=== PATIENT | female | born 1965 | race Hispanic/Latino ===

== ENCOUNTER 2017-06-06 15:00 | Inpatient (IN) | payer MEDICARE ==
[~2017-06-06] VITALS: Ht 160 cm; Wt 112.9 kg
[2017-06-06 12:39] LABS: BASOPHILS % (AUTO) 0.4 % (0.0-5.0); EOSINOPHILS % (AUTO) 2.4 % (0.0-8.0); HEMATOCRIT 38.4 % (36-48); LYMPHOCYTES % (AUTO) 22.2 % (21.0-51.0); MEAN CORPUSCULAR HEMOGLOBIN 32.1 pg (27.0-33.0); MEAN CORPUSCULAR HGB CONC 34.8 g/dL (32.0-36.0); MEAN CORPUSCULAR VOLUME 92.3 fL (79-99); MONOCYTES % (AUTO) 6.8 % (3.0-13.0); NEUTROPHILS % (AUTO) 68.2 % (40.0-77.0); PLATELET COUNT (AUTO) 267 K/uL (130-400); RED BLOOD CELL COUNT(AUTO) 4.16 MIL/uL (4.00-5.50); RED CELL DISTRIBUTION WIDTH 13.6 % (11.0-15.5); WHITE BLOOD COUNT (AUTO) 7.2 K/uL (4.8-10.8)
[2017-06-06 12:40] VITALS: BP 138/81
[2017-06-06 12:43] LABS: APPEARANCE,URINE Clear (CLEAR); BILIRUBIN,URINE Negative (NEGATIVE); COLOR,URINE Yellow (YELLOW); GLUCOSE, URINE (UA) Negative (NEGATIVE); KETONES,URINE Negative (NEGATIVE); LEUKOCYTE ESTERASE ,URINE Negative (NEGATIVE); NITRATE,URINE Negative (NEGATIVE); OCCULT BLOOD,URINE Negative (NEGATIVE); PH,URINE 6.5 (5.0-8.0); PROTEIN,URINE Negative (NEGATIVE)
[2017-06-06 12:50] LABS: CREATININE 0.8 mg/dL (0.5-1.5); POTASSIUM 4.2 mmol/L (3.5-5.1)
[2017-06-06 12:53] LABS: INR 0.92 (0.85-1.15); PARTIAL THROMBOPLASTIN TIME 27.3 SEC (26.3-35.5); PROTHROMBIN TIME 9.7 SEC (9.6-11.6)
[~2017-06-06 15:00] MED LIST: ALBU8.5H8 IH; ALPR2TAB2 PO; GABA-326 PO; HYDR-4060 PO; LORA10TA7 PO; METF500T6 PO; NAPROXEN PO; OXCA600T10 PO; OXYB5TAB PO; RANI150T7 PO; TOPI200T PO
[2017-06-09] VITALS (34 sets, daily range): BP systolic 81–145; BP diastolic 41–79
[2017-06-09] MEDS ORDERED: CEFAZOLIN 3GM /D5W 100ML 100 ML IV ONE (05:00)
[2017-06-09] MEDS ORDERED: CEFAZOLIN SODIUM 1 GM VIAL ONE ×4 (11:41→17:18)
[2017-06-09] MEDS ORDERED: SODIUM CHLORIDE 0.9% 1000ML 1,000 ML IV ONE (11:41)
[2017-06-09] MEDS ORDERED: MIDAZOLAM HCL 1 MG/ML 2ML VIAL ONE (12:33)
[2017-06-09] MEDS ORDERED: LIDOCAINE PF 2% 5ML ABBOJECT ONE (12:33)
[2017-06-09] MEDS ORDERED: ONDANSETRON HCL 4 MG/2 ML VIAL ONE ×2 (12:33→15:52)
[2017-06-09] MEDS ORDERED: GLYCOPYRROLATE 0.2 MG/ML 5 ML VIAL ONE (12:33)
[2017-06-09] MEDS ORDERED: PROPOFOL 10 MG/ML 20ML VIAL IV ONE (12:33)
[2017-06-09] MEDS ORDERED: DEXAMETHASONE SOD PHOSPHATE 10MG/ML 1ML VIAL ONE ×2 (12:33→15:52)
[2017-06-09] MEDS ORDERED: FENTANYL CITRATE PF 50 MCG/1 ML 2ML VIAL ONE ×5 (12:34→16:46)
[2017-06-09] MEDS ORDERED: MORPHINE SULFATE 2 MG/ML 1ML SYG ONE (12:34)
[2017-06-09] MEDS ORDERED: CELECOXIB 200 MG CAP ONE (12:44)
[2017-06-09] MEDS ORDERED: METOCLOPRAMIDE 10 MG/2 ML VIAL ONE ×2 (12:44→15:51)
[2017-06-09] MEDS ORDERED: ACETAMINOPHEN EXTRA STRENGTH 500 MG TABLET ONE (12:44)
[2017-06-09] MEDS ORDERED: KETOROLAC TROMETHAMINE 15MG/ML ONE (12:44)
[2017-06-09] MEDS ORDERED: OXYCODONE HCL 10 MG TAB.SR.12H PO ONE (12:45)
[2017-06-09] MEDS ORDERED: CALDOLOR 800MG+NS 250ML 250 ML IV ONE (12:58)
[2017-06-09] MEDS ORDERED: ROPIVACAINE 0.5% 5MG/ML 30ML IJ ONE ×2 (12:58→15:52)
[2017-06-09] MEDS: MORPHINE SULFATE 2 MG/ML 1ML SYG IVP SCH (13:00)
[2017-06-09] MEDS ORDERED: TRANEXAMIC ACID 1000MG/10ML IV ONE (13:23)
[2017-06-09] MEDS ORDERED: ROCURONIUM BROMIDE 10MG/1ML 5ML VL ONE ×2 (15:51→16:41)
[2017-06-09] MEDS ORDERED: SUCCINYLCHOLINE 200MG/10ML SYR ONE (15:51)
[2017-06-09] MEDS ORDERED: ESMOLOL HCL 10 MG/ML 10 ML VIAL ONE (15:53)
[2017-06-09] MEDS ORDERED: FERROUS FUMARATE 324 MG TABLET PO PRN (17:45)
[2017-06-09] MEDS ORDERED: DiphenhydrAMINE HCL 50 MG/ML VIAL IVP PRN (17:45)
[2017-06-09] MEDS ORDERED: KETOROLAC TROMETHAMINE 15MG/ML IV PRN (17:45)
[2017-06-09] MEDS ORDERED: PROMETHAZINE HCL 25 MG/ML 1ML AMPULE IM PRN (17:45)
[2017-06-09] MEDS ORDERED: DIPHENHYDRAMINE HCL 25 MG CAPSULE PO PRN (17:45)
[2017-06-09] MEDS ORDERED: EPHEDRINE SULFATE 50 MG/ML AMPULE ONE (17:52)
[2017-06-09] MEDS ORDERED: MEPERIDINE-PF 50 MG/ML SYG ONE (18:23)
[2017-06-09] MEDS ORDERED: NAPROXEN PO PRN (20:45)
[2017-06-09] MEDS ORDERED: ALBUTEROL SULFATE 0.083% 2.5 MG/3 ML INH IH PRN (20:45)
[2017-06-09] MEDS ORDERED: OXCARBAZEPINE 300 MG TAB PO SCH (21:00)
[2017-06-09] MEDS: INSULIN HUMULIN R 100 UNIT/ML 3ML SQ SCH (21:00)
[2017-06-09] MEDS: TOPIRAMATE 25 MG TABLET PO SCH (21:00)
[2017-06-09] MEDS: ALPRAZOLAM 1 MG TAB PO SCH (21:00)
[2017-06-09] MEDS: GABAPENTIN 300 MG CAPSULE PO SCH (21:00)
[2017-06-09] MEDS: CEFAZOLIN 3GM /D5W 100ML 100 ML IV SCH (22:37)
[2017-06-09] MEDS: SODIUM CHLORIDE 0.9% 1000ML 1,000 ML IV SCH (22:42)
[2017-06-09] MEDS ORDERED: OXYCODONE HCL 5 MG TAB PO PRN (23:15)
[2017-06-10] VITALS (8 sets, daily range): BP systolic 101–139; BP diastolic 53–69
[2017-06-10] MEDS: OXYCODONE HCL 5 MG TAB PO PRN ×2 (00:23→21:01)
[2017-06-10] MEDS: ACETAMINOPHEN 325 MG TAB PO SCH ×5 (00:25→23:58)
[2017-06-10] MEDS: SODIUM CHLORIDE 0.9% 1000ML 1,000 ML IV SCH ×2 (03:41→13:29)
[2017-06-10 04:51] LABS: HEMATOCRIT 25.6 % (36-48); MEAN CORPUSCULAR HEMOGLOBIN 33.2 pg (27.0-33.0); MEAN CORPUSCULAR HGB CONC 36.4 g/dL (32.0-36.0); MEAN CORPUSCULAR VOLUME 91.2 fL (79-99); PLATELET COUNT (AUTO) 227 K/uL (130-400); RED BLOOD CELL COUNT(AUTO) 2.81 MIL/uL (4.00-5.50); RED CELL DISTRIBUTION WIDTH 13.8 % (11.0-15.5)
[2017-06-10 05:00] LABS: CREATININE 0.9 mg/dL (0.5-1.5); POTASSIUM 3.9 mmol/L (3.5-5.1)
[2017-06-10] MEDS: CEFAZOLIN 3GM /D5W 100ML 100 ML IV SCH (06:38)
[2017-06-10] MEDS: INSULIN HUMULIN R 100 UNIT/ML 3ML SQ SCH ×4 (06:49→20:20)
[2017-06-10] MEDS: MORPHINE SULFATE 2 MG/ML 1ML SYG IVP SCH (07:05)
[2017-06-10] MEDS: GABAPENTIN 300 MG CAPSULE PO SCH ×3 (09:00→19:56)
[2017-06-10] MEDS: OXYBUTYNIN 5 MG TAB.SR.24H PO SCH (09:00)
[2017-06-10] MEDS: GABAPENTIN 100 MG CAPSULE PO SCH ×3 (09:00→19:56)
[2017-06-10] MEDS: METFORMIN HCL 500 MG TABLET PO SCH ×2 (09:31→16:36)
[2017-06-10] MEDS: APIXABAN 2.5 MG TABLET PO SCH ×2 (09:32→19:55)
[2017-06-10] MEDS: OXCARBAZEPINE 300 MG TAB PO SCH ×2 (09:32→19:57)
[2017-06-10] MEDS: ALPRAZOLAM 1 MG TAB PO SCH ×3 (09:32→19:56)
[2017-06-10] MEDS: POLYETHYLENE GLYCOL 3350 17 GM POWD.PACK PO SCH (09:32)
[2017-06-10] MEDS: LORATADINE 10 MG TABLET PO SCH (09:32)
[2017-06-10] MEDS: CALCIUM CARBONATE 500 MG TABLET PO PRN ×2 (12:03→19:55)
[2017-06-10] MEDS: PSYLLIUM SEED 1 EACH PACKET PO SCH (12:04)
[2017-06-10] MEDS: TOPIRAMATE 25 MG TABLET PO SCH (19:57)
[2017-06-10] MEDS ORDERED: FAMOTIDINE 20MG TAB 20 MG TAB PO SCH (21:00)
[2017-06-11] VITALS: BP 116/52
[2017-06-11] MEDS: OXYCODONE HCL 5 MG TAB PO PRN ×3 (01:08→10:09)
[2017-06-11 04:00] VITALS: BP 127/59
[2017-06-11 05:04] LABS: HEMATOCRIT 23.3 % (36-48); MEAN CORPUSCULAR HEMOGLOBIN 31.8 pg (27.0-33.0); MEAN CORPUSCULAR HGB CONC 35.1 g/dL (32.0-36.0); MEAN CORPUSCULAR VOLUME 90.6 fL (79-99); PLATELET COUNT (AUTO) 201 K/uL (130-400); RED BLOOD CELL COUNT(AUTO) 2.57 MIL/uL (4.00-5.50); RED CELL DISTRIBUTION WIDTH 13.4 % (11.0-15.5)
[2017-06-11 05:12] LABS: POTASSIUM 3.4 mmol/L (3.5-5.1)
[2017-06-11] MEDS: INSULIN HUMULIN R 100 UNIT/ML 3ML SQ SCH ×3 (06:48→16:30)
[2017-06-11] MEDS: ACETAMINOPHEN 325 MG TAB PO SCH ×3 (06:49→17:25)
[2017-06-11 07:52] VITALS: BP 112/84
[2017-06-11] MEDS: OXCARBAZEPINE 300 MG TAB PO SCH (08:25)
[2017-06-11] MEDS: GABAPENTIN 100 MG CAPSULE PO SCH ×2 (08:25→14:41)
[2017-06-11] MEDS: METFORMIN HCL 500 MG TABLET PO SCH ×2 (08:26→17:24)
[2017-06-11] MEDS: LORATADINE 10 MG TABLET PO SCH (08:26)
[2017-06-11] MEDS: GABAPENTIN 300 MG CAPSULE PO SCH ×2 (08:26→14:41)
[2017-06-11] MEDS: APIXABAN 2.5 MG TABLET PO SCH (08:26)
[2017-06-11] MEDS: ALPRAZOLAM 1 MG TAB PO SCH ×2 (08:26→14:41)
[2017-06-11] MEDS: OXYBUTYNIN 5 MG TAB.SR.24H PO SCH (08:32)
[2017-06-11] MEDS: POLYETHYLENE GLYCOL 3350 17 GM POWD.PACK PO SCH (08:32)
[2017-06-11] MEDS ORDERED: POTASSIUM CHLORIDE 20MEQ/100ML 100 ML IV PRN (08:45)
[2017-06-11] MEDS ORDERED: LIDOCAINE HCL-MPF 1% 2ML VIAL IVP PRN (08:45)
[2017-06-11] MEDS: POTASSIUM CHLORIDE 20 MEQ ERTAB PO PRN ×3 (09:59→14:41)
[2017-06-11 11:24] VITALS: BP 110/75
[2017-06-11] MEDS: KETOROLAC TROMETHAMINE 15MG/ML IM PRN ×2 (11:52→18:20)
[2017-06-11] MEDS: PSYLLIUM SEED 1 EACH PACKET PO SCH ×2 (11:53→11:57)
[2017-06-11] MEDS: MORPHINE SULFATE 2 MG/ML 1ML SYG IVP SCH (13:00)
[2017-06-11 16:19] VITALS: BP 127/54
[2017-06-11] MEDS ORDERED: HYDR-309 PO (16:47)
[2017-06-11] MEDS ORDERED: APIX2.5T PO (16:47)
[2017-06-11] MEDS ORDERED: BISACODYL 5 MG TABLET.DR PO PRN (17:45)
[2017-06-12] MEDS ORDERED: BISACODYL 10 MG SUPP.RECT RC PRN (17:45)
== END 2017-06-11 19:47 | DRG 470 ==
LOC: DAHIP 06-09 10:42 → 4AH 06-09 19:27
PROVIDERS: ADMIT Orthopaedic Surgery; ATTEND Orthopaedic Surgery
PROC: 0SRB0JZ Replacement of Left Hip Joint with Synthetic Substitute, Open Approach (ICD-10-PCS; principal; 2017-06-11)
DX: M16.12 Unilateral primary osteoarthritis, left hip (principal); E11.9 Type 2 diabetes mellitus without complications; I10 Essential (primary) hypertension; E78.00 Pure hypercholesterolemia, unspecified; F41.9 Anxiety disorder, unspecified; Z83.3 Family history of diabetes mellitus; Z88.8 Allergy status to other drugs, medicaments and biological substances
CPT/HCPCS: 36415; 73503; 80048; 81003; 82948; 85025; 85027; 85610; 85730; 88304; 88311; 94664; 96374; 96375; A4218; J0330; J0690; J1100; J1741; J1885; J2001; J2175; J2250; J2405; J2704; J2765; J2795; J3010; J3490; J7030

== ENCOUNTER 2018-07-27 10:00 | Emergency (ER) | payer MEDICARE ==
[~2018-07-27 10:00] MED LIST changes: +APIX2.5T PO; -GABA-326 PO; +GABA800T9 PO; -HYDR-4060 PO; +HYDR-4457 PO; +METF-444 PO; -METF500T6 PO; -NAPROXEN PO; -OXCA600T10 PO; +OXCA600T18 PO
[2018-07-27 10:25] LABS: BASOPHILS % (AUTO) 0.5 % (0.0-5.0); EOSINOPHILS % (AUTO) 2.5 % (0.0-8.0); HEMATOCRIT 39.8 % (36-48); LYMPHOCYTES % (AUTO) 23.9 % (21.0-51.0); MEAN CORPUSCULAR HEMOGLOBIN 30.9 pg (27.0-33.0); MEAN CORPUSCULAR HGB CONC 33.6 g/dL (32.0-36.0); MEAN CORPUSCULAR VOLUME 91.9 fL (79-99); MONOCYTES % (AUTO) 5.8 % (3.0-13.0); NEUTROPHILS % (AUTO) 67.3 % (40.0-77.0); PLATELET COUNT (AUTO) 247 K/uL (130-400); RED BLOOD CELL COUNT(AUTO) 4.33 MIL/uL (4.00-5.50); RED CELL DISTRIBUTION WIDTH 13.8 % (11.0-15.5); WHITE BLOOD COUNT (AUTO) 9.5 K/uL (4.8-10.8)
[2018-07-27 10:42] LABS: CREATININE 0.8 mg/dL (0.5-1.5); POTASSIUM 3.9 mmol/L (3.5-5.1)
[2018-07-27 10:47] LABS: ALBUMIN 4.4 g/dL (3.5-5.0); BILIRUBIN,TOTAL 0.4 mg/dL (0.2-1.0); TOTAL PROTEIN, SERUM 7.4 g/dL (6.0-8.3)
[2018-07-27 11:20] LABS: APPEARANCE,URINE Clear (CLEAR); BILIRUBIN,URINE Negative (NEGATIVE); COLOR,URINE Yellow (YELLOW); GLUCOSE, URINE (UA) Negative (NEGATIVE); KETONES,URINE Negative (NEGATIVE); LEUKOCYTE ESTERASE ,URINE Negative (NEGATIVE); NITRATE,URINE Negative (NEGATIVE); OCCULT BLOOD,URINE Negative (NEGATIVE); PROTEIN,URINE Negative (NEGATIVE)
== END 2018-07-27 11:55 | disposition home or self-care (01) ==
LOC: EDH 10:00
DX: K43.9 Ventral hernia without obstruction or gangrene (principal); E11.9 Type 2 diabetes mellitus without complications; Z88.5 Allergy status to narcotic agent; Z88.6 Allergy status to analgesic agent; Z98.890 Other specified postprocedural states; Z96.649 Presence of unspecified artificial hip joint
CPT/HCPCS: 36415; 74176; 80053; 81003; 83690; 85025

== ENCOUNTER 2019-04-09 11:09 | Emergency (ER) | payer MEDICARE ==
[~2019-04-09 11:09] MED LIST changes: -ALBU8.5H8 IH; +ALBUTEROL IH; -ALPR2TAB2 PO; -APIX2.5T PO; +GABA-529 PO; -GABA800T9 PO; +LINA145C PO; +NAPR220T57 PO; -OXYB5TAB PO
[2019-04-09] MEDS ORDERED: ASPIRIN 325 MG TABLET ONE (11:22)
[2019-04-09 11:37] LABS: BASOPHILS % (AUTO) 0.1 % (0.0-5.0); EOSINOPHILS % (AUTO) 2.1 % (0.0-8.0); HEMATOCRIT 39.8 % (36-48); MEAN CORPUSCULAR HGB CONC 32.2 g/dL (32.0-36.0); MEAN CORPUSCULAR VOLUME 93.2 fL (79-99); MONOCYTES % (AUTO) 5.9 % (3.0-13.0); NEUTROPHILS % (AUTO) 66.6 % (40.0-77.0); PLATELET COUNT (AUTO) 260 K/uL (130-400); RED BLOOD CELL COUNT(AUTO) 4.27 MIL/uL (4.00-5.50); RED CELL DISTRIBUTION WIDTH 13.9 % (11.0-15.5)
[2019-04-09 11:41] LABS: CREATININE 0.7 mg/dL (0.5-1.5); POTASSIUM 3.7 mmol/L (3.5-5.1)
[2019-04-09 11:47] LABS: BILIRUBIN,TOTAL 0.9 mg/dL (0.2-1.0); TOTAL PROTEIN, SERUM 7.2 g/dL (6.0-8.3)
[2019-04-09 12:05] LABS: INR 0.97 (0.85-1.15); PROTHROMBIN TIME 10.2 SEC (9.6-11.6)
[2019-04-09] MEDS ORDERED: DIAZEPAM 5 MG TABLET ONE (12:35)
[2019-04-09] MEDS ORDERED: CYCLOBENZAPRINE HCL 10 MG TABLET ONE (12:35)
== END 2019-04-09 14:55 | disposition home or self-care (01) ==
LOC: EDH 11:09
DX: R07.89 Other chest pain (principal); E11.9 Type 2 diabetes mellitus without complications; Z88.6 Allergy status to analgesic agent; Z88.5 Allergy status to narcotic agent
CPT/HCPCS: 36415; 71045; 80053; 82550; 84484; 85025; 85610; 85730; 93005

== ENCOUNTER 2022-03-11 06:13 | Observation (INO) | payer OTHER, MEDICARE ==
[2022-03-04 15:14] LABS: CREATININE 0.7 mg/dL (0.5-1.5); POTASSIUM 4.4 mmol/L (3.5-5.1)
[2022-03-06] MEDS: CEFAZOLIN SODIUM 1 GM VIAL IVPB SCH (09:30)
[2022-03-07] MEDS: CEFAZOLIN SODIUM 1 GM VIAL IVPB SCH (09:30)
[2022-03-08] MEDS: CEFAZOLIN SODIUM 1 GM VIAL IVPB SCH (09:30)
[2022-03-08 09:44] VITALS: BP 149/83
[2022-03-09] MEDS: CEFAZOLIN SODIUM 1 GM VIAL IVPB SCH (09:30)
[2022-03-11] VITALS (25 sets, daily range): BP systolic 83–139; BP diastolic 30–83
[~2022-03-11] VITALS: Ht 157.5 cm; Wt 67.1 kg
[~2022-03-11 06:13] MED LIST changes: -ALBUTEROL IH; +ATEN25TA PO; +ATOR10 PO; +CLON1TAB12 PO; +DULO20CA18 PO; +FENTANYL CITRATE PF 50 MCG/1 ML 20ML VIAL IJ ONE; +FENTANYL CITRATE PF 50 MCG/1 ML 5ML AMP IV ONE; -GABA-529 PO; -HYDR-4457 PO; -LINA145C PO; -LORA10TA7 PO; -NAPR220T57 PO; -OXCA600T18 PO; +OXYC1TAB12 PO; +PHARMACY COMMUNICATION MISC SCH; -RANI150T7 PO; -TOPI200T PO
[2022-03-11 06:29] LABS: BASOPHILS % (AUTO) 0.3 % (0.0-5.0); EOSINOPHILS % (AUTO) 4.7 % (0.0-8.0); HEMATOCRIT 35.9 % (36-48); LYMPHOCYTES % (AUTO) 31.1 % (21.0-51.0); MEAN CORPUSCULAR HEMOGLOBIN 28.6 pg (27.0-33.0); MEAN CORPUSCULAR HGB CONC 32.3 g/dL (32.0-36.0); MEAN CORPUSCULAR VOLUME 88.6 fL (79-99); MONOCYTES % (AUTO) 7.5 % (3.0-13.0); NEUTROPHILS % (AUTO) 56.2 % (40.0-77.0); PLATELET COUNT (AUTO) 232 K/uL (130-400); RED BLOOD CELL COUNT(AUTO) 4.05 MIL/uL (4.00-5.50); RED CELL DISTRIBUTION WIDTH 13.9 % (11.0-15.5); WHITE BLOOD COUNT (AUTO) 6.2 K/uL (4.8-10.8)
[2022-03-11] MEDS ORDERED: 0.9%NACL 1000ML 1,000 ML IV ONE (06:34)
[2022-03-11] MEDS ORDERED: FENTANYL CITRATE PF 50 MCG/1 ML 5ML AMP IV ONE ×3 (07:07→09:10)
[2022-03-11] MEDS ORDERED: MIDAZOLAM HCL 1 MG/ML 2ML VIAL ONE (08:09)
[2022-03-11] MEDS ORDERED: GLYCOPYRROLATE 1 MG/5 ML SYRINGE ONE ×2 (08:09→11:15)
[2022-03-11] MEDS ORDERED: LIDOCAINE PF 100MG/5ML (2%) SYRINGE 5ML ONE (08:09)
[2022-03-11] MEDS ORDERED: DEXAMETHASONE SOD PHOSPHATE 10MG/ML 1ML VIAL ONE (08:09)
[2022-03-11] MEDS ORDERED: NEOSTIGMINE 5MG/5ML SYR IV ONE (08:09)
[2022-03-11] MEDS ORDERED: ROCURONIUM 10MG/1ML SYR 10 MG/ML ML ONE (08:09)
[2022-03-11] MEDS ORDERED: ONDANSETRON 4MG INJ ONE ×2 (08:09→11:39)
[2022-03-11] MEDS ORDERED: SUCCINYLCHOLINE 200MG/10ML SYR ONE (08:09)
[2022-03-11] MEDS ORDERED: PROPOFOL 10 MG/ML 20ML VIAL IV ONE ×3 (08:09→10:39)
[2022-03-11] MEDS ORDERED: MORPHINE PF 100MG/10ML AMP IV ONE (08:14)
[2022-03-11] MEDS: CEFAZOLIN SODIUM 1 GM VIAL IVPB SCH (08:20)
[2022-03-11] MEDS ORDERED: EPHEDRINE SULFATE 50 MG/ML AMPULE ONE (08:41)
[2022-03-11] MEDS ORDERED: KETOROLAC 30MG VIAL (30MG/ML) IVP PRN (10:00)
[2022-03-11] MEDS ORDERED: MEPERIDINE-PF 25 MG/ML SYG ONE ×2 (11:39→11:52)
[2022-03-11] MEDS: LACTATED RINGERS 1000ML 1,000 ML IV SCH ×2 (12:57→23:20)
[2022-03-11] MEDS: ZOSYN 3.375GM+NS 50ML 50 ML IV SCH ×2 (12:57→20:39)
[2022-03-11] MEDS: MORPHINE 4 MG SYG IV PRN ×2 (19:13→23:31)
[2022-03-12 01:10] VITALS: BP 116/65
[2022-03-12 04:08] VITALS: BP 130/70
[2022-03-12 04:47] LABS: BASOPHILS % (AUTO) 0.2 % (0.0-5.0); EOSINOPHILS % (AUTO) 0.1 % (0.0-8.0); LYMPHOCYTES % (AUTO) 18.2 % (21.0-51.0); MEAN CORPUSCULAR HEMOGLOBIN 28.3 pg (27.0-33.0); MEAN CORPUSCULAR HGB CONC 32.5 g/dL (32.0-36.0); MEAN CORPUSCULAR VOLUME 87.2 fL (79-99); MONOCYTES % (AUTO) 7.7 % (3.0-13.0); NEUTROPHILS % (AUTO) 73.4 % (40.0-77.0); PLATELET COUNT (AUTO) 243 K/uL (130-400); RED BLOOD CELL COUNT(AUTO) 3.21 MIL/uL (4.00-5.50); RED CELL DISTRIBUTION WIDTH 14.2 % (11.0-15.5)
[2022-03-12 05:10] LABS: ALBUMIN 3.4 g/dL (3.5-5.0); TOTAL PROTEIN, SERUM 6.4 g/dL (6.0-8.3)
[2022-03-12] MEDS: MORPHINE 4 MG SYG IV PRN ×4 (05:45→23:00)
[2022-03-12 08:00] VITALS: BP 98/51
[2022-03-12] MEDS: CEFAZOLIN SODIUM 1 GM VIAL IVPB SCH (09:30)
[2022-03-12 12:00] VITALS: BP 107/56
[2022-03-12 16:00] VITALS: BP 122/69
[2022-03-12] MEDS: LACTATED RINGERS 1000ML 1,000 ML IV SCH (19:57)
[2022-03-12 20:00] VITALS: BP 116/61
[2022-03-13] VITALS: BP 121/62
[2022-03-13] MEDS: LACTATED RINGERS 1000ML 1,000 ML IV SCH (02:00)
[2022-03-13 04:00] VITALS: BP 127/75
[2022-03-13 04:28] LABS: HEMATOCRIT 24.6 % (36-48); MEAN CORPUSCULAR HEMOGLOBIN 28.8 pg (27.0-33.0); MEAN CORPUSCULAR HGB CONC 32.1 g/dL (32.0-36.0); MEAN CORPUSCULAR VOLUME 89.8 fL (79-99); RED BLOOD CELL COUNT(AUTO) 2.74 MIL/uL (4.00-5.50); RED CELL DISTRIBUTION WIDTH 14.4 % (11.0-15.5); WHITE BLOOD COUNT (AUTO) 7.6 K/uL (4.8-10.8)
[2022-03-13 04:29] LABS: BASOPHILS % (AUTO) 0.1 % (0.0-5.0); LYMPHOCYTES % (AUTO) 26.1 % (21.0-51.0); MONOCYTES % (AUTO) 6.9 % (3.0-13.0); NEUTROPHILS % (AUTO) 64.5 % (40.0-77.0); PLATELET COUNT (AUTO) 185 K/uL (130-400)
[2022-03-13 04:54] LABS: CREATININE 0.6 mg/dL (0.5-1.5); POTASSIUM 3.7 mmol/L (3.5-5.1); TOTAL PROTEIN, SERUM 5.8 g/dL (6.0-8.3)
[2022-03-13 08:00] VITALS: BP 137/73
[2022-03-13] MEDS: CEFAZOLIN SODIUM 1 GM VIAL IVPB SCH (09:30)
[2022-03-13] MEDS: MORPHINE 4 MG SYG IV PRN (11:25)
[2022-03-13 12:00] VITALS: BP 116/78
[2022-03-13 16:00] VITALS: BP 147/75
== END 2022-03-13 17:40 | disposition home or self-care (01) ==
LOC: DAH 06:13 → 4BH 06:14 → DAH 06:14
PROVIDERS: ADMIT Surgery; ATTEND Surgery
DX: M79.3 Panniculitis, unspecified (principal); Z20.822 Contact with and (suspected) exposure to COVID-19; I10 Essential (primary) hypertension; E11.65 Type 2 diabetes mellitus with hyperglycemia; J45.909 Unspecified asthma, uncomplicated; E66.9 Obesity, unspecified; E78.00 Pure hypercholesterolemia, unspecified; R12 Heartburn; R35.0 Frequency of micturition; Z79.899 Other long term (current) drug therapy; Z98.890 Other specified postprocedural states; Z79.84 Long term (current) use of oral hypoglycemic drugs; Z68.27 Body mass index [BMI] 27.0-27.9, adult; Z96.651 Presence of right artificial knee joint; Z96.642 Presence of left artificial hip joint; Z90.49 Acquired absence of other specified parts of digestive tract; Z90.710 Acquired absence of both cervix and uterus; Z98.891 History of uterine scar from previous surgery; R26.2 Difficulty in walking, not elsewhere classified
CPT/HCPCS: 80048; 87426; 36415 ×4; 15830; 15847; 96376 ×3; 96365; 96366 ×2; 96375; 84703; 85025 ×3; 82948 ×11; 80053 ×2; A6260; J3010 ×7; G0378 ×51; A4452; J0690; J0330; J3490 ×3; J1100; J2710; J7030; J2001; J2250; J2704 ×3; J2274; J2405 ×2; J2270 ×7; J1885; J2543 ×2; J2175 ×2; A4649; A4930 ×2; A4215; A4223; A4222; A4221; A4663; A4600

== ENCOUNTER 2023-06-04 06:52 | Observation (INO) | payer OTHER, MEDICARE ==
[2023-06-02 12:59] VITALS: BP 149/79; PULSE 73; RESP 16
[2023-06-02 13:10] LABS: APPEARANCE,URINE CLEAR (CLEAR); BILIRUBIN,URINE NEGATIVE (NEGATIVE); COLOR,URINE LIGHT-YELLOW (YELLOW); GLUCOSE, URINE (UA) NEGATIVE (NEGATIVE); KETONES,URINE NEGATIVE (NEGATIVE); LEUKOCYTE ESTERASE ,URINE NEGATIVE Leu/uL (NEGATIVE); NITRATE,URINE NEGATIVE (NEGATIVE); OCCULT BLOOD,URINE NEGATIVE (NEGATIVE); PH,URINE 5.5 (5.0-8.0); PROTEIN,URINE NEGATIVE (NEGATIVE); UROBILINOGEN,URINE 0.2 mg/dL (0.2-1.0)
[2023-06-02 13:18] LABS: ADD UA MICROSCOPIC NO
[~2023-06-04] VITALS: Ht 160 cm; Wt 74.4 kg
[2023-06-04] VITALS (25 sets, daily range): BP systolic 100–134; BP diastolic 52–74; PULSE 51–71; RESP 13–18
[~2023-06-04 06:52] MED LIST changes: -ATOR10 PO; -CLON1TAB12 PO; -FENTANYL CITRATE PF 50 MCG/1 ML 20ML VIAL IJ ONE; -FENTANYL CITRATE PF 50 MCG/1 ML 5ML AMP IV ONE; +HYDR-3421 PO; +HYDR-4068 PO; -METF-444 PO; -OXYC1TAB12 PO; +OXYCARBAZEPINE PO; -PHARMACY COMMUNICATION MISC SCH
[2023-06-04] MEDS: 0.9%NACL 1000ML 1,000 ML IV ONE (07:25)
[2023-06-04] MEDS: FENTANYL CITRATE PF 50 MCG/1 ML 2ML VIAL ONE (11:57)
[2023-06-04] MEDS: MIDAZOLAM HCL 1 MG/ML 2ML VIAL ONE (11:58)
[2023-06-04] MEDS: FENTANYL CITRATE PF 50 MCG/1 ML 2ML VIAL IVP ONE (12:24)
[2023-06-04] MEDS: MIDAZOLAM HCL 1 MG/ML 2ML VIAL IVP ONE (12:25)
[2023-06-04] MEDS ORDERED: DEXAMETHASONE SOD PHOSPHATE 10MG/ML 1ML VIAL ONE (12:28)
[2023-06-04] MEDS ORDERED: ONDANSETRON 4MG INJ ONE (12:28)
[2023-06-04] MEDS ORDERED: SUCCINYLCHOLINE CHLORIDE 20 MG/ML 10 ML VIAL ONE (12:28)
[2023-06-04] MEDS ORDERED: LIDOCAINE PF 100MG/5ML (2%) SYRINGE 5ML ONE (12:28)
[2023-06-04] MEDS ORDERED: FENTANYL CITRATE PF 50 MCG/1 ML 2ML VIAL ONE ×3 (12:29→17:44)
[2023-06-04] MEDS ORDERED: MIDAZOLAM HCL 1 MG/ML 2ML VIAL ONE (12:29)
[2023-06-04] MEDS ORDERED: NEOSTIGMINE METHYLSULFATE 1MG/ML IV ONE ×2 (12:29→16:36)
[2023-06-04] MEDS ORDERED: PROPOFOL 10 MG/ML 20ML VIAL IV ONE (12:29)
[2023-06-04] MEDS ORDERED: GLYCOPYRROLATE 0.2 MG/ML 5 ML VIAL ONE ×2 (12:29→16:36)
[2023-06-04] MEDS ORDERED: ROPIVACAINE 0.5% 5MG/ML 30ML ONE (12:33)
[2023-06-04] MEDS: FAMOTIDINE 20MG VIAL IV ONE (13:13)
[2023-06-04] MEDS: HYDROMORPHONE 1 MG INJ ONE ×3 (13:13→18:46)
[2023-06-04] MEDS ORDERED: EPHEDRINE SULFATE 50 MG/ML AMPULE ONE (13:59)
[2023-06-04] MEDS: CEFAZOLIN SODIUM 2 GM VIAL ONE (14:11)
[2023-06-04] MEDS: TRANEXAMIC ACID 1000MG/10ML ONE (14:15)
[2023-06-04] MEDS ORDERED: ROCURONIUM BROMIDE 10MG/1ML 5ML VL ONE (15:14)
[2023-06-04] MEDS ORDERED: MAGNESIUM SULFATE 4.06 MEQ/ML ***TPN USE ONLY IJ ONE (17:46)
[2023-06-04] MEDS: MEPERIDINE-PF 25 MG/ML SYG ONE (17:53)
[2023-06-04] MEDS: 0.9%NACL 1000ML 1,000 ML IV SCH ×2 (18:00→18:30)
[2023-06-04] MEDS ORDERED: ONDANSETRON 4MG INJ IVP PRN (18:30)
[2023-06-04] MEDS ORDERED: HYDROCODONE/ACETAMINOPHEN 10/325 MG TAB PO PRN (18:30)
[2023-06-04] MEDS ORDERED: KCL 20 MEQ ERTAB PO PRN (18:30)
[2023-06-04] MEDS ORDERED: DiphenhydrAMINE HCL 50 MG/ML VIAL IVP PRN (18:30)
[2023-06-04] MEDS ORDERED: KETOROLAC 15MG/ML VIAL (15MG/ML) IV PRN (18:30)
[2023-06-04] MEDS ORDERED: POTASSIUM CHLORIDE 10% ELIXIR 20 MEQ/15 ML UDCUP PO PRN (18:30)
[2023-06-04] MEDS ORDERED: CYCLOBENZAPRINE HCL 10 MG TABLET PO PRN (18:30)
[2023-06-04] MEDS ORDERED: POTASSIUM CHLORIDE 20MEQ/100ML 100 ML IV PRN (18:30)
[2023-06-04] MEDS ORDERED: HYDROXYZINE 25 MG TABLET PO PRN (20:30)
[2023-06-04] MEDS: KETOROLAC 15MG/ML VIAL (15MG/ML) IV SCH (20:40)
[2023-06-04] MEDS ORDERED: Duloxetine HCl 20 MG PO PRN (21:00)
[2023-06-04] MEDS: INSULIN HUMULIN R 100 UNIT/ML 3ML SQ SCH (21:00)
[2023-06-04] MEDS ORDERED: OXYCARBAZEPINE PO SCH (21:00)
[2023-06-04] MEDS: HYDROXYZINE 10 MG TABLET PO SCH (21:19)
[2023-06-04] MEDS: CELECOXIB 200 MG CAP PO SCH (21:19)
[2023-06-04] MEDS: OXCARBAZEPINE 300 MG TAB PO SCH (21:19)
[2023-06-04] MEDS: GABAPENTIN 100 MG CAPSULE PO SCH (21:19)
[2023-06-04] MEDS: DOCUSATE SODIUM 100 MG CAP PO SCH (21:20)
[2023-06-04] MEDS: CEFAZOLIN SODIUM 2 GM VIAL IVPB SCH (23:08)
[2023-06-05] VITALS (8 sets, daily range): BP systolic 95–119; BP diastolic 52–62; PULSE 66–91; RESP 17–18; O2SAT 97
[2023-06-05] MEDS: HYDROCODONE/ACETAMINOPHEN 10/325 MG TAB PO PRN (00:32)
[2023-06-05] MEDS: KETOROLAC 15MG/ML VIAL (15MG/ML) IV SCH (04:17)
[2023-06-05 04:25] LABS: HEMATOCRIT 25.8 % (36-48); MEAN CORPUSCULAR HEMOGLOBIN 31.7 pg (27.0-33.0); MEAN CORPUSCULAR HGB CONC 34.5 g/dL (32.0-36.0); MEAN CORPUSCULAR VOLUME 91.8 fL (79-99); RED BLOOD CELL COUNT(AUTO) 2.81 MIL/uL (4.00-5.50); RED CELL DISTRIBUTION WIDTH 14.1 % (11.0-15.5); WHITE BLOOD COUNT (AUTO) 7.7 K/uL (4.8-10.8)
[2023-06-05 04:46] LABS: CREATININE 0.9 mg/dL (0.5-1.5); POTASSIUM 4.4 mmol/L (3.5-5.1)
[2023-06-05] MEDS: POLYETHYLENE GLYCOL 3350 17 GM POWD.PACK PO SCH (08:51)
[2023-06-05] MEDS: CALCIUM CARB 500MG PO PRN (08:51)
[2023-06-05] MEDS: FERROUS FUMARATE 324 MG TABLET PO PRN (08:51)
[2023-06-05] MEDS: ASPIRIN 325MG EC TAB PO SCH (08:52)
[2023-06-05] MEDS: ATENOLOL 25 MG TABLET PO SCH (09:00)
[2023-06-05] MEDS: GABAPENTIN 100 MG CAPSULE PO SCH (13:39)
[2023-06-06 04:00] VITALS: BP 130/69; PULSE 89; RESP 18
[2023-06-06 08:00] VITALS: BP 102/58; PULSE 98; RESP 18; O2SAT 98
[2023-06-06 12:00] VITALS: BP 105/57; PULSE 87; RESP 20
[2023-06-06] MEDS ORDERED: ASPI-891 PO (12:24)
[2023-06-06] MEDS ORDERED: GABA100C PO (12:24)
[2023-06-06] MEDS ORDERED: HYDR-4068 PO (12:24)
[2023-06-06] MEDS ORDERED: CYCL-309 PO (12:24)
[2023-06-06] MEDS ORDERED: DOCU-116 PO (12:24)
[2023-06-06] MEDS ORDERED: CELE200 PO (12:24)
[2023-06-06] MEDS: KETOROLAC 15MG/ML VIAL (15MG/ML) IV PRN (13:39)
[2023-06-07] MEDS ORDERED: BISACODYL 10 MG SUPP.RECT RC PRN (18:30)
== END 2023-06-06 17:00 ==
LOC: DAH 06:52 → DAHIP 06:53 → DAH 06:53 → EDSTATUS 16:00 → 4CH 19:00
PROVIDERS: ADMIT Student in an Organized Health Care Education/Training Program; ATTEND Student in an Organized Health Care Education/Training Program
DX: M16.11 Unilateral primary osteoarthritis, right hip (principal); D62 Acute posthemorrhagic anemia; I10 Essential (primary) hypertension; E11.9 Type 2 diabetes mellitus without complications; E78.00 Pure hypercholesterolemia, unspecified; J45.909 Unspecified asthma, uncomplicated; E78.5 Hyperlipidemia, unspecified; F41.8 Other specified anxiety disorders; Z79.899 Other long term (current) drug therapy
CPT/HCPCS: 82040; 87088; 84134; 86140; 81003; 36415 ×2; 87641; 64450; 27130; 96365; 96375; 87077; 87186; 82948 ×8; 73503; 73521; 96376 ×2; 80048; 85027; 97161; 97116 ×4; 97530 ×6; G0378 ×43; C1776; J3490 ×6; J3010 ×4; J1170 ×3; J1100; J0330; J7030; J2001; J2250; J2704; J2405; J2710 ×2; J3475; J2175; J2795; J1885 ×3; J0690 ×3; A4649 ×4; G0168; A4930; A6255; A5120; A4215; A4223; A4213; A4222; A4221; A4663